=== PATIENT | female | born 1930 | race Native Hawaiian/Other Pacific Islander ===

== ENCOUNTER 2017-11-22 08:14 | Outpatient (CLI) | payer OTHER ==
[2017-11-22 08:39] LABS: PLATELET COUNT 284 K/uL (152-353)
[2017-11-22 09:05] LABS: POTASSIUM 3.4 mmol/L (3.6-5.2)
== END 2017-11-22 22:48 | disposition home or self-care (01) ==
LOC: LABW 08:14
PROVIDERS: Nurse Practitioner
DX: I10 Essential (primary) hypertension (principal); E78.2 Mixed hyperlipidemia; R53.83 Other fatigue; E53.8 Deficiency of other specified B group vitamins; E55.9 Vitamin D deficiency, unspecified
CPT/HCPCS: 36415; 80053; 80061; 82306; 82607; 84443; 85027

== ENCOUNTER 2018-01-03 08:22 | Outpatient (CLI) | payer OTHER | END 2018-01-03 22:01 | disposition home or self-care (01) | LOC: RAD 08:22 | DX: N95.1 Menopausal and female climacteric states (principal); M81.8 Other osteoporosis without current pathological fracture ==

== ENCOUNTER 2018-04-14 14:52 | Inpatient (IN) | payer OTHER ==
[2018-04-14] VITALS (11 sets, daily range): BP systolic 108–143; BP diastolic 73–111; TEMP 97.6–98; Ht 170.2 cm; Wt 89.4 kg
[~2018-04-14] VITALS: Ht 170.2 cm; Wt 89.4 kg
[2018-04-14] MEDS ORDERED: CLOP75TA2 PO (17:34)
[2018-04-14] MEDS ORDERED: POTA20TA4 PO (17:37)
[2018-04-14] MEDS ORDERED: PERPHEN PO (17:42)
[2018-04-14] MEDS ORDERED: AMIT PO (17:42)
[2018-04-14] MEDS ORDERED: COQ10100 MG PO (17:43)
[2018-04-14] MEDS ORDERED: LEFLUNOMIDE10 MG PO (17:44)
[2018-04-14] MEDS ORDERED: MECLIZINE25 MG PO (17:47)
[2018-04-14] MEDS ORDERED: METO50TA27 PO ×2 (17:48→17:49)
[2018-04-14] MEDS ORDERED: DEXL60CA4 PO (17:50)
[2018-04-14] MEDS ORDERED: CLON0.1T16 PO (17:52)
[2018-04-14] MEDS ORDERED: FUROSEMIDE20 MG PO (17:53)
[2018-04-14] MEDS ORDERED: SIMV40TA57 PO (17:54)
[2018-04-14] MEDS ORDERED: AVAPRO300 MG PO (17:55)
[2018-04-14] MEDS ORDERED: URSODIOL300 MG PO (17:57)
[2018-04-14] MEDS ORDERED: VITA D-1000 PO (17:59)
[2018-04-14] MEDS ORDERED: STOOL SOFTNR100 MG PO (18:00)
[2018-04-14] MEDS ORDERED: CALCIUM600 M1 PO (18:01)
[2018-04-14] MEDS ORDERED: PRESERVISION PO (18:02)
[2018-04-14] MEDS ORDERED: ASA LOW DOSE81 MG PO (18:03)
[2018-04-14] MEDS ORDERED: ARTIFICIA5 OP (18:06)
[2018-04-14 18:10] LABS: PLATELET COUNT 330 K/uL (152-353)
[2018-04-14 18:15] LABS: POTASSIUM 4.7 mmol/L (3.6-5.2)
[2018-04-14 18:51] LABS: PARTIAL THROMBOPLASTIN TIME 26.3 SECONDS (24.5-33.6)
[2018-04-15] VITALS (29 sets, daily range): BP systolic 109–156; BP diastolic 61–115; TEMP 97.6–98.6
[2018-04-16] VITALS (43 sets, daily range): BP systolic 97–164; BP diastolic 62–117; TEMP 97.6–98.5
[2018-04-17] VITALS (42 sets, daily range): BP systolic 118–185; BP diastolic 59–129; TEMP 97–98.1
[2018-04-17 06:31] LABS: PLATELET COUNT 254 K/uL (152-353)
[2018-04-17 06:37] LABS: POTASSIUM 3.6 mmol/L (3.6-5.2)
[2018-04-18] VITALS (22 sets, daily range): BP systolic 94–169; BP diastolic 55–122; TEMP 97.5–98.1
[2018-04-19] VITALS: BP 146/82; TEMP 97.8
[2018-04-19 04:00] VITALS: BP 151/71; TEMP 98
[2018-04-19 06:27] LABS: PLATELET COUNT 281 K/uL (152-353); POTASSIUM 3.9 mmol/L (3.6-5.2)
[2018-04-19 07:00] VITALS: BP 134/84; TEMP 97.7
[2018-04-19 12:00] VITALS: BP 149/91; TEMP 97.6
[2018-04-19 16:00] VITALS: BP 167/98; TEMP 98.1
[2018-04-19 20:00] VITALS: BP 139/67; TEMP 97.5
[2018-04-20] VITALS: BP 134/64; TEMP 98.8
[2018-04-20 04:00] VITALS: BP 132/73; TEMP 97.7
[2018-04-20 07:00] VITALS: BP 137/75; TEMP 97.7
[2018-04-20 12:00] VITALS: BP 148/68; TEMP 97.7
[2018-04-20 16:00] VITALS: BP 158/80; TEMP 97.4
[2018-04-20 20:00] VITALS: BP 121/88; TEMP 97.8
[2018-04-21] VITALS: BP 129/61; TEMP 97.6
[2018-04-21 04:00] VITALS: BP 138/75; TEMP 97.4
[2018-04-21 08:06] VITALS: BP 131/78; TEMP 97.5
[2018-04-21 12:02] VITALS: BP 147/82; TEMP 98.2
== END 2018-04-21 17:15 | disposition home or self-care (01) | DRG 309 ==
LOC: MED/SURG 14:52 → ICU 17:27 → MED/SURG 04-18 14:30
PROVIDERS: Student in an Organized Health Care Education/Training Program; ADMIT Internal Medicine
PROC: 05HM33Z Insertion of Infusion Device into Right Internal Jugular Vein, Percutaneous Approach (ICD-10-PCS; principal; 2018-04-14)
DX: I48.91 Unspecified atrial fibrillation (principal); N39.0 Urinary tract infection, site not specified; I82.4Z1 Acute embolism and thrombosis of unspecified deep veins of right distal lower extremity; I95.89 Other hypotension; E03.8 Other specified hypothyroidism; I25.10 Atherosclerotic heart disease of native coronary artery without angina pectoris; I10 Essential (primary) hypertension; K21.9 Gastro-esophageal reflux disease without esophagitis; E78.4 Other hyperlipidemia; B96.20 Unspecified Escherichia coli [E. coli] as the cause of diseases classified elsewhere
CPT/HCPCS: 36415; 51702; 80048; 80053; 80162; 81000; 82550; 82607; 84439; 84443; 84484; 85027; 85610; 85730; 87077; 87086; 87088; 87186; 93005; 94760; C1768; J0696; J0744; J1160; J1940; J2185; J2405; J2765; J3490

== ENCOUNTER 2018-05-04 13:26 | Outpatient (CLI) | payer OTHER ==
[~2018-05-04 13:26] MED LIST: AMIT PO; ARTIFICIA5 OP; ASA LOW DOSE81 MG PO; AVAPRO300 MG PO; CALCIUM600 M1 PO; CLON0.1T16 PO; CLOP75TA2 PO; COQ10100 MG PO; DEXL60CA4 PO; FUROSEMIDE20 MG PO; LEFLUNOMIDE10 MG PO; MECLIZINE25 MG PO; METO50TA27 PO; PERPHEN PO; POTA20TA4 PO; PRESERVISION PO; SIMV40TA57 PO; STOOL SOFTNR100 MG PO; URSODIOL300 MG PO; VITA D-1000 PO
== END 2018-05-04 20:19 | disposition home or self-care (01) ==
LOC: LAB 13:26
DX: N39.0 Urinary tract infection, site not specified (principal)
CPT/HCPCS: 81000; 87088

== ENCOUNTER 2018-05-11 15:44 | Outpatient (CLI) | payer OTHER | END 2018-05-11 18:54 | disposition home or self-care (01) | LOC: RESP 15:44 | DX: I49.9 Cardiac arrhythmia, unspecified (principal) ==

== ENCOUNTER 2019-01-16 08:41 | Outpatient (CLI) | payer OTHER ==
[2019-01-16 09:49] LABS: PLATELET COUNT 274 K/uL (152-353)
[2019-01-16 09:59] LABS: POTASSIUM 3.8 mmol/L (3.6-5.2)
== END 2019-01-16 19:34 | disposition home or self-care (01) ==
LOC: LABW 08:41
PROVIDERS: Internal Medicine
DX: I10 Essential (primary) hypertension (principal); I48.2 Chronic atrial fibrillation; R53.82 Chronic fatigue, unspecified; E55.9 Vitamin D deficiency, unspecified; R73.9 Hyperglycemia, unspecified; E53.8 Deficiency of other specified B group vitamins; E78.00 Pure hypercholesterolemia, unspecified
CPT/HCPCS: 36415; 80053; 80061; 80162; 82306; 82607; 83036; 84443; 85027

== ENCOUNTER 2019-04-07 07:49 | Outpatient (CLI) | payer OTHER ==
[2019-04-07 08:54] LABS: POTASSIUM 4.1 mmol/L (3.6-5.2)
== END 2019-04-07 22:07 | disposition home or self-care (01) ==
LOC: LABW 07:49
PROVIDERS: Nurse Practitioner
DX: E03.8 Other specified hypothyroidism (principal); I48.0 Paroxysmal atrial fibrillation; N28.89 Other specified disorders of kidney and ureter
CPT/HCPCS: 36415; 80048; 80162; 84443

== ENCOUNTER 2019-05-11 13:00 | Outpatient (CLI) | payer OTHER ==
[2019-05-11 13:14] LABS: PLATELET COUNT 296 K/uL (152-353)
[2019-05-11 13:42] LABS: POTASSIUM 4.3 mmol/L (3.6-5.2)
== END 2019-05-11 20:31 | disposition home or self-care (01) ==
LOC: LAB 13:00
PROVIDERS: Nurse Practitioner
DX: E03.8 Other specified hypothyroidism (principal); R53.1 Weakness; E53.8 Deficiency of other specified B group vitamins
CPT/HCPCS: 80053; 82607; 84443; 85027

== ENCOUNTER 2019-06-14 16:03 | Outpatient (CLI) | payer OTHER | END 2019-06-14 22:03 | disposition home or self-care (01) | LOC: LAB 16:03 | DX: D64.9 Anemia, unspecified (principal) | CPT/HCPCS: 82728; 82746; 83540 ==

== ENCOUNTER 2019-07-03 10:12 | Outpatient (CLI) | payer OTHER ==
[2019-07-03 10:40] LABS: PLATELET COUNT 438 K/uL (152-353)
[2019-07-03 11:20] LABS: POTASSIUM 3.7 mmol/L (3.6-5.2)
== END 2019-07-03 20:51 | disposition home or self-care (01) ==
LOC: LABW 10:12
PROVIDERS: Physician Assistant
DX: L03.818 Cellulitis of other sites (principal); I10 Essential (primary) hypertension; E03.8 Other specified hypothyroidism; R53.1 Weakness; E53.8 Deficiency of other specified B group vitamins
CPT/HCPCS: 36415; 80053; 82607; 83735; 84439; 84443; 85027; 87070; 87077; 87185; 87186; 87205

== ENCOUNTER 2019-07-10 11:11 | Emergency (ER) | payer OTHER ==
[~2019-07-10] VITALS: Ht 170.2 cm; Wt 67.1 kg
[2019-07-10 11:18] VITALS: TEMP 97.3
[2019-07-10 13:20] LABS: PLATELET COUNT 350 K/uL (152-353)
[2019-07-10 13:24] LABS: POTASSIUM 3.7 mmol/L (3.6-5.2); SODIUM 134 mmol/L (136-145)
[2019-07-10 15:00] VITALS: BP 119/89
== END 2019-07-10 16:05 | disposition home or self-care (01) ==
LOC: ED 11:11
PROVIDERS: Emergency Medicine
DX: R53.1 Weakness (principal); R53.81 Other malaise; D64.89 Other specified anemias; W18.39XA Other fall on same level, initial encounter; Y92.89 Other specified places as the place of occurrence of the external cause
CPT/HCPCS: 80053; 81000; 82272; 84484; 85027; 87077; 87086; 87088; 87186; 99283

== ENCOUNTER 2019-07-27 11:25 | Outpatient (CLI) | payer OTHER ==
[2019-07-27 12:28] LABS: PLATELET COUNT 398 K/uL (152-353)
[2019-07-27 12:37] LABS: POTASSIUM 4.7 mmol/L (3.6-5.2)
== END 2019-07-27 22:32 | disposition home or self-care (01) ==
LOC: LAB 11:25
PROVIDERS: Internal Medicine
DX: I25.10 Atherosclerotic heart disease of native coronary artery without angina pectoris (principal); I12.9 Hypertensive chronic kidney disease with stage 1 through stage 4 chronic kidney disease, or unspecified chronic kidney disease; I50.9 Heart failure, unspecified; N18.9 Chronic kidney disease, unspecified; K21.9 Gastro-esophageal reflux disease without esophagitis; E03.8 Other specified hypothyroidism; G62.89 Other specified polyneuropathies; M06.89 Other specified rheumatoid arthritis, multiple sites
CPT/HCPCS: 80053; 83735; 85027

== ENCOUNTER 2019-11-06 10:49 | Outpatient (CLI) | payer OTHER | END 2019-11-06 19:16 | disposition home or self-care (01) | LOC: LAB 10:49 | DX: R30.0 Dysuria (principal) | CPT/HCPCS: 81000; 87077; 87086; 87088; 87186 ==

== ENCOUNTER 2019-11-14 18:39 | Inpatient (IN) | payer OTHER ==
[~2019-11-14] VITALS: Ht 170.2 cm; Wt 66.5 kg
[2019-11-14 18:39] VITALS: BP 149/108; TEMP 97.3
[2019-11-14 20:07] LABS: PLATELET COUNT 384 K/uL (152-353)
[2019-11-14 20:47] LABS: POTASSIUM 4.4 mmol/L (3.6-5.2); SODIUM 134 mmol/L (136-145)
[2019-11-14 23:15] VITALS: BP 139/44; TEMP 97.7; Ht 170.2 cm; Wt 66.5 kg
[2019-11-15] VITALS: BP 139/94; TEMP 97.7
[2019-11-15] MEDS ORDERED: IRON (FERROUS S50 MG PO (00:24)
[2019-11-15] MEDS ORDERED: PANTOPRAZOLE 40MG TA PO (00:28)
[2019-11-15] MEDS ORDERED: GABA100C2 PO (00:30)
[2019-11-15] MEDS ORDERED: DIGITEK0.125 MG PO (00:33)
[2019-11-15] MEDS ORDERED: METOPROLOL25 M1 PO (00:37)
[2019-11-15] MEDS ORDERED: LEVO0.08 PO (00:41)
[2019-11-15] MEDS ORDERED: DILT-XR180 MG PO (00:44)
[2019-11-15] MEDS ORDERED: AMIT25TA22 PO (00:48)
--- NOTE | 2019-11-15 00:51 | NUR ---
11/14/19 2238 PT TO ROOM 1109 DX CHF,AFIB RVR.A/O TALKING PLACED ON TLEMENTRY. 22 GAUDGE TO LEFT HAND INTACT.CC 11/15/2019 0050 PT C/O OF SHORTNESS OF BREATH ON EXCERTION.RESPIRATORY WENT TO ROOM TO CHECK ON PATIENT OXYGEN SATURATION 96 PERCENT ON 02 2LPM.PT ALSO C/O OF BEING NAUSEATED.CC
--- NOTE | 2019-11-15 01:12 | NUR ---
11/15/19 0111 ER PHYSICAN NOTIFIED OF PATIENT GETTING SOB WHILE UP TO BEDSIDE COMMODE ALSO C/O NAUSEA.NEW ORDER RECEIVED TO GIVE ZOFRAN NEEDED FOR NAUSEA.CC
[2019-11-15 04:00] VITALS: BP 143/95; TEMP 97.8
[2019-11-15 05:57] LABS: PLATELET COUNT 323 K/uL (152-353)
[2019-11-15 06:14] LABS: POTASSIUM 3.4 mmol/L (3.6-5.2)
[2019-11-15 08:00] VITALS: BP 140/86; TEMP 97.9
--- NOTE | 2019-11-15 08:11 | NUR ---
Patient was admitted with SOB, Nausea, CHF, RVR, Afib, Abdominal Pain, and is on a Cardiac Low Sodium diet plan. WNC, MCV, RDW, BUN all elevated and is on oxgen, RBC, Hgb, Hct, MCHC, K, AST, ALT, TP and alb all depressed, wound to r ankle, Lasix, Rocephrin, and has epigastric pain, GERD, HTN, thyroid disease, afib, hypokalemia, vertigo, neuropathy, and is a non-smoker and is a 89YOF and is 67" and at 149 lbs. and IBW = 135+/-10% (121 to 149 lbs.) and kcal needs for IBW = x 25 = 1500, x 30 = 1800, x 35 = 2200, x 40 = 2500 kcal/day, protein needs x .8 to 1.5 = 49 to 92 grams per day and fluids for IBW x 25 to 30 = 1500 to 1800 ml/cc per day and BMI = 23.3 wnls and is 110% IBW. RD Recommendations: 1-May want to add a fluid restriction 2-May want to addfood high in Fe 3-[facility] all food allergens, food preferences and fods as tolerated d/t GERD 4-Monitor abnormal labs 5-Add Vitamin C 500 mg BID 6-Add ZNSO4 220 mg per day and d/c in 14 days 7-Add protein 1 scoop or 30 ml TID
[2019-11-15 12:00] VITALS: BP 154/90; TEMP 97.9
--- NOTE | 2019-11-15 15:50 | NUR ---
1500 SPOKE WT PT'S SON VIA PHONE. NO NEW PROBLMS ARISING. WILL CON'T TO SHOLATR.
[2019-11-15 16:00] VITALS: BP 139/91; TEMP 97.8
[2019-11-15 20:00] VITALS: BP 133/88; TEMP 98.8
[2019-11-16] VITALS: BP 140/96; TEMP 97.8
[2019-11-16 04:00] VITALS: BP 138/97; TEMP 98.7
[2019-11-16 04:14] LABS: PLATELET COUNT 344 K/uL (152-353)
[2019-11-16 08:00] VITALS: BP 145/95; TEMP 98
[2019-11-16] MEDS ORDERED: ZITHROMAX500 MG PO (12:23)
[2019-11-16] MEDS ORDERED: AZIT250T3 PO (12:23)
--- NOTE | 2019-11-16 13:16 | NUR ---
[address] MORALES'S OFFICE CONCERNING PT FOLLOWING UP WITH DR MORALES. CLARK WILL CALL PT ON 11-17-19 TO SET UP APPT DATE AND TIME FOR TELE MED APPT. PT INFORMED AND INFORM GIVEN TO PT FOR FRIEND/SON . 1230 LATE ENTRY PT'S SON PHONED PASHA AND HE WAS INFORMED OF PT GOING TO BE DISCHARGED HOME TODAY. ALL UPDATD INFORM GIVEN TO HIM AT THIS TIME.
--- NOTE | 2019-11-16 16:24 | NUR ---
1350 PT LEFT VIA WC AND PUSHED TO OUTSIDE AND TO FAMILY. PT LEFT NO ACUTE DISTRESS NOTED. PT HAD HOME MEDS IN A BAG FROM [facility] WITH 3 BOTTLES OF MED IN [facility].
== END 2019-11-16 13:50 | disposition home or self-care (01) | DRG 310 ==
LOC: ED 18:56 → MED/SURG 21:40
PROVIDERS: Family Medicine; ADMIT Internal Medicine
DX: I48.91 Unspecified atrial fibrillation (principal); E03.8 Other specified hypothyroidism; I25.10 Atherosclerotic heart disease of native coronary artery without angina pectoris; K21.9 Gastro-esophageal reflux disease without esophagitis; I11.0 Hypertensive heart disease with heart failure; I50.9 Heart failure, unspecified
CPT/HCPCS: 36415; 80048; 80053; 81000; 83880; 84443; 84484; 85027; 93005; 94760; 99283; J0696; J1940; J2405